=== PATIENT | female | born 1940 | race Caucasian/White ===

== ENCOUNTER 2018-06-23 04:54 | Inpatient (IN) ==
--- NOTE | 2018-06-16 14:15 | XRay Report ---
CLINICAL INFORMATION: pre surgery COMPARISON: 12/06/2017 FINDINGS: Heart size, mediastinum and pulmonary vessels are normal. There is minimal wall thickening central bronchi and slight elevation lung volumes suggesting chronic bronchitis - no change. No infiltrates or new pulmonary abnormalities. No effusions. Moderate degenerative disease throughout the thoracic spine stable IMPRESSION: Possible chronic bronchitis - stable. No acute disease Interpreted and Authenticated by: Benny Lockwood 06/16/18
[2018-06-16 18:35] LABS: Blood Urea Nitrogen 12 mg/dl (8-23)
[2018-06-23] MEDS ORDERED: LEVOFLOXACIN 750 MG/150 ML BAG IV SCH (06:30)
[2018-06-23] MEDS ORDERED: ROCURONIUM 10 MG/ML ML IV ONE (07:30)
[2018-06-23] MEDS ORDERED: DEXAMETHASONE 10 MG/ML VIAL IV ONE (07:30)
[2018-06-23] MEDS ORDERED: NEOSTIGMINE 1 MG/ML VIAL IV ONE (07:30)
[2018-06-23] MEDS ORDERED: ONDANSETRON 4 MG/2 ML VIAL IV ONE (07:30)
[2018-06-23] MEDS ORDERED: fentaNYL 250 MCG/5 ML VIAL IV ONE (07:30)
[2018-06-23] MEDS ORDERED: GLYCOPYRROLATE 0.2 MG/ML VIAL IV ONE (07:30)
[2018-06-23] MEDS ORDERED: LIDOCAINE HCL/PF 100 MG/5 ML SYRINGE IV ONE (07:30)
[2018-06-23] MEDS ORDERED: PROPOFOL 200 MG/20 ML VIAL IV ONE (07:30)
[2018-06-23] MEDS ORDERED: MIDAZOLAM 2 MG/2 ML VIAL IV ONE (07:30)
[2018-06-23] MEDS ORDERED: ePHEDrine 50 MG/ML AMPUL IV ONE (07:30)
[2018-06-23] MEDS ORDERED: PHENYLEPHRINE 10 MG/ML VIAL IV ONE (07:30)
[2018-06-23] MEDS ORDERED: KETAMINE 100 MG/ML ML IV ONE (07:30)
[2018-06-23] MEDS ORDERED: BACITRACIN 50,000 UNIT VIAL IR ONE (08:08)
[2018-06-23] MEDS ORDERED: fentaNYL 100 MCG/2 ML VIAL IV PRN (08:32)
[2018-06-23] MEDS ORDERED: METHOCARBAMOL 1,000 MG/10 ML VIAL IV PRN (08:32)
[2018-06-23] MEDS ORDERED: IPRATROPIUM/ALBUTEROL 3 ML AMPUL.NEB NEB PRN (08:32)
[2018-06-23] MEDS ORDERED: HYDROmorphone 2 MG/ML VIAL IV PRN (08:32)
[2018-06-23] MEDS ORDERED: FLUMAZENIL 0.1 MG/ML ML IV PRN (08:32)
[2018-06-23] MEDS ORDERED: ACETAMINOPHEN 1,000 MG/100 ML BOTTLE IV ONE (08:32)
[2018-06-23] MEDS ORDERED: ONDANSETRON 4 MG/2 ML VIAL IV PRN ×2 (08:32→10:01)
[2018-06-23] MEDS ORDERED: LACTATED RINGERS 250 ML IV PRN (08:32)
[2018-06-23] MEDS ORDERED: NALOXONE HCL 0.4 MG/ML VIAL IV PRN (08:32)
[2018-06-23] MEDS ORDERED: BENZOCAINE/MENTHOL 1 LOZENGE PO PRN (08:32)
[2018-06-23] MEDS ORDERED: LACTATED RINGERS 1,000 ML IV SCH (08:45)
--- NOTE | 2018-06-23 09:48 | Brief Operative Note ---
Date of procedure: 06/23/18 Pre-op diagnosis: incarcerated incisional hernia Post-op diagnosis: other (recurrent incisional hernia) Procedure: repair of recurrent incisional hernia with mesh and explantation of old mesh Grafts/Implants: No (surgimesh) Anesthesia: GETA Findings: onlay mesh graft with herniation at superior and inferior margins of graft Complications: none Surgeon: Bernice Sims Estimated blood loss (cc): 50 Specimens Removed/Pathology: none sent Condition: stable Disposition: PACU
[2018-06-23] MEDS: 0.9 % SODIUM CHLORIDE 1,000 ML IV SCH (12:19)
[2018-06-23] MEDS: METOCLOPRAMIDE 10 MG/2 ML VIAL IV SCH ×2 (12:19→17:27)
[2018-06-23] MEDS: PANTOPRAZOLE 40 MG VIAL IV SCH (17:27)
[2018-06-23] MEDS: 0.9 % SODIUM CHLORIDE 10 ML SYRINGE IV SCH ×2 (17:28→20:00)
[2018-06-23] MEDS: ACETAMINOPHEN 1,000 MG/100 ML BOTTLE IV PRN (19:16)
[2018-06-23] MEDS: HYDROmorphone 2 MG/ML VIAL IV PRN ×2 (19:25→23:33)
[2018-06-23] MEDS: DOCUSATE SODIUM 100 MG CAPSULE PO SCH (21:20)
[2018-06-24] MEDS: METOCLOPRAMIDE 10 MG/2 ML VIAL IV SCH ×4 (00:38→18:53)
[2018-06-24] MEDS: 0.9 % SODIUM CHLORIDE 1,000 ML IV SCH ×3 (02:26→17:16)
[2018-06-24] MEDS: ACETAMINOPHEN 1,000 MG/100 ML BOTTLE IV PRN ×2 (02:26→13:47)
[2018-06-24] MEDS: HYDROmorphone 2 MG/ML VIAL IV PRN ×4 (03:35→13:49)
[2018-06-24 06:01] LABS: Basophils # (Auto) 0.1 K/mcL (0.0-0.3); Basophils % (Auto) 0.5 % (0.0-2.0); Eosinophils # (Auto) 0.1 K/mcL (0.0-0.7); Eosinophils % (Auto) 0.8 % (0.0-7.0); Granulocytes % (Auto) 75.2 % (38.0-78.0); Lymphocytes # (Auto) 1.7 K/mcL (1.5-4.8); Lymphocytes % (Auto) 14.8 % (15.5-49.0); Mean Cell Volume 92.9 fL (80.0-100.0); Mean Corpuscular HGB Conc 33.6 g/dL (31.0-36.0); Mean Corpuscular Hemoglobin 31.2 pg (26.0-34.0); Monocytes % (Auto) 8.7 % (1.0-12.0); Platelet Count 278 K/mcL (140-440); RBC 3.64 M/mcL (4.00-5.20); Red Cell Distribution Width 13.4 % (11.5-14.5)
[2018-06-24] MEDS: 0.9 % SODIUM CHLORIDE 10 ML SYRINGE IV SCH ×3 (06:06→22:47)
[2018-06-24 06:33] LABS: ALT/SGPT 16 U/l (0-40); Albumin 3.9 gm/dL (3.2-5.2); Albumin/Globulin Ratio 1.6 (1.0-2.3); Alkaline Phosphatase 109 U/L (39-117); Bilirubin,Direct < 0.2 mg/dL (0.0-0.3); Blood Urea Nitrogen 12 mg/dl (8-23); Gamma Glutamyl Transpeptidase 21 U/L (5-36); Uric Acid 5.8 mg/dL (2.5-8.0)
[2018-06-24] MEDS: PANTOPRAZOLE 40 MG VIAL IV SCH ×2 (07:23→17:15)
[2018-06-24] MEDS: LEVOFLOXACIN 750 MG/150 ML BAG IV SCH (08:46)
[2018-06-24] MEDS: DOCUSATE SODIUM 100 MG CAPSULE PO SCH ×2 (11:00→21:11)
--- NOTE | 2018-06-24 14:11 | General Surgery Progress Note ---
Subjective Patient reports: feels better, still having pain, no flatus, no bowel movement, afebrile Narrative: Note initiated : 06/24/18 at 2:09 pm Service Date, if different from initiated Date: [] Patient: Pili Varghese 77 y/o F admitted on 06/23/18 for Open Incarcerated Incisional Hernia Repair with . Chief Complaint: [Patient is stable. She has nausea but no vomiting. She has not had any flatus. Her pain is significant but the Dilaudid is toO strong for her.] Objective Temp Pulse Resp BP Pulse Ox 98.0 F 96 H 16 131/74 90 06/24/18 11:48 06/24/18 11:48 06/24/18 08:00 06/24/18 11:48 06/24/18 08:00 - Additional Data Intake & Output - Last 24 hours: Intake & Output 06/22/18 06/23/18 06/24/18 06/25/18 05:59 05:59 05:59 05:59 Intake Total 3100 / 3100 150 / 150 Output Total 1107 / 1107 Balance 1992 150 / 150 Weight 172 lb 8 oz 175 lb 175 lb - General physical appearance well developed, well nourished, no distress - Eyes PERRL, normal ocular movement - ENT normal pinna, normal nares, normal mucosa, no hearing loss, no congestion - Neck no masses, no bruits, trachea midline, no lymphadenopathy, no venous distension - Respiratory normal expansion, normal respiratory effort, clear to auscultation - Cardiovascular Cardiovascular exam: Present: normal rate and rhythm, RRR, +S1, +S2. Absent: JVD, tachycardia - Abdomen tender (moderate incisional tenderness; active bowel sounds; incision looks good ; TRISHA drainage is bloody), bowel sounds (present), surgical scars (none), masses (none) - Rectum normal sphincter tone, no hemorrhoids, no tenderness, no masses, no bleeding - Integumentary no rash, no growths, no abnormal pigmentation - Neurologic normal coordination, normal sensation - Musculoskeletal normal gait, normal posture - Psychiatric oriented to time, oriented to person, oriented to place, speech is normal, memory intact - Labs 06/24/18 05:00 06/24/18 05:00 Diabetes panel 06/24/18 Range/Units 05:00 Sodium 134 (133-145) mmol/L Potassium 4.4 (3.3-5.1) mmol/L Chloride 99 (96-108) mmol/L Carbon Dioxide 23 (22-30) mmol/L BUN 12 (8-23) mg/dl Creatinine 0.7 (0.6-1.1) mg/dl Glucose 105 (70-105) mg/dL Calcium 9.5 (8.6-10.4) mg/dl AST 23 (0-37) U/l ALT 16 (0-40) U/l Alkaline Phosphatase 109 (39-117) U/L Total Protein 6.3 (5.9-8.4) gm/dL Albumin 3.9 (3.2-5.2) gm/dL Triglycerides 118 (<150) mg/dl Calcium panel 06/24/18 Range/Units 05:00 Calcium 9.5 (8.6-10.4) mg/dl Phosphorus 4.0 (2.7-4.5) mg/dL Albumin 3.9 (3.2-5.2) gm/dL Pituitary panel 06/24/18 Range/Units 05:00 Sodium 134 (133-145) mmol/L Potassium 4.4 (3.3-5.1) mmol/L Chloride 99 (96-108) mmol/L Carbon Dioxide 23 (22-30) mmol/L BUN 12 (8-23) mg/dl Creatinine 0.7 (0.6-1.1) mg/dl Glucose 105 (70-105) mg/dL Calcium 9.5 (8.6-10.4) mg/dl Adrenal panel 06/24/18 Range/Units 05:00 Sodium 134 (133-145) mmol/L Potassium 4.4 (3.3-5.1) mmol/L Chloride 99 (96-108) mmol/L Carbon Dioxide 23 (22-30) mmol/L BUN 12 (8-23) mg/dl Creatinine 0.7 (0.6-1.1) mg/dl Glucose 105 (70-105) mg/dL Calcium 9.5 (8.6-10.4) mg/dl Total Bilirubin 0.7 (0.0-1.0) mg/dL AST 23 (0-37) U/l ALT 16 (0-40) U/l Alkaline Phosphatase 109 (39-117) U/L Total Protein 6.3 (5.9-8.4) gm/dL Albumin 3.9 (3.2-5.2) gm/dL Assessment and Plan (1) Incarcerated incisional hernia Status: Chronic Assessment and plan: Switch to Dilaudid to Demerol Current Visit: No (2) Gastroesophageal reflux Status: Chronic Current Visit: No (3) 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
[2018-06-24] MEDS ORDERED: MEPERIDINE 25 MG/ML SYRINGE IV PRN (14:14)
[2018-06-24] MEDS ORDERED: fentaNYL 100 MCG/2 ML VIAL IV PRN (17:59)
[2018-06-24] MEDS ORDERED: fentaNYL 100 MCG/2 ML VIAL IV ONE ×2 (18:51→20:51)
[2018-06-24] MEDS: oxyCODONE/APAP 5/325MG TABLET PO PRN (21:10)
[2018-06-24] MEDS: fentaNYL 100 MCG/2 ML VIAL IV PRN (23:06)
[2018-06-25] MEDS: METOCLOPRAMIDE 10 MG/2 ML VIAL IV SCH ×5 (00:25→23:37)
[2018-06-25] MEDS: oxyCODONE/APAP 5/325MG TABLET PO PRN ×3 (00:50→09:39)
[2018-06-25] MEDS: fentaNYL 100 MCG/2 ML VIAL IV PRN (01:54)
[2018-06-25 05:27] LABS: Basophils # (Auto) 0 K/mcL (0.0-0.3); Basophils % (Auto) 0.5 % (0.0-2.0); Eosinophils # (Auto) 0.4 K/mcL (0.0-0.7); Eosinophils % (Auto) 4.3 % (0.0-7.0); Granulocytes % (Auto) 73.1 % (38.0-78.0); Lymphocytes # (Auto) 1.4 K/mcL (1.5-4.8); Lymphocytes % (Auto) 14.9 % (15.5-49.0); Mean Cell Volume 92.9 fL (80.0-100.0); Mean Corpuscular HGB Conc 33.5 g/dL (31.0-36.0); Mean Corpuscular Hemoglobin 31.1 pg (26.0-34.0); Monocytes # (Auto) 0.7 K/mcL (0.1-0.9); Monocytes % (Auto) 7.2 % (1.0-12.0); Platelet Count 233 K/mcL (140-440); RBC 3.66 M/mcL (4.00-5.20); Red Cell Distribution Width 13.3 % (11.5-14.5)
[2018-06-25 06:01] LABS: ALT/SGPT 15 U/l (0-40); Albumin 3.5 gm/dL (3.2-5.2); Albumin/Globulin Ratio 1.4 (1.0-2.3); Alkaline Phosphatase 108 U/L (39-117); Bilirubin,Direct < 0.2 mg/dL (0.0-0.3); Blood Urea Nitrogen 8 mg/dl (8-23); Gamma Glutamyl Transpeptidase 23 U/L (5-36); Uric Acid 5.4 mg/dL (2.5-8.0)
[2018-06-25] MEDS: 0.9 % SODIUM CHLORIDE 1,000 ML IV SCH ×2 (06:01→16:04)
[2018-06-25] MEDS: 0.9 % SODIUM CHLORIDE 10 ML SYRINGE IV SCH ×3 (06:01→20:25)
[2018-06-25] MEDS: PANTOPRAZOLE 40 MG VIAL IV SCH ×2 (09:25→18:57)
[2018-06-25] MEDS: LEVOFLOXACIN 750 MG/150 ML BAG IV SCH (09:29)
[2018-06-25] MEDS: DOCUSATE SODIUM 100 MG CAPSULE PO SCH ×2 (09:31→20:24)
[2018-06-25] MEDS ORDERED: POTASSIUM PHOSPHATE 40 MEQ in DEXTROSE 5% IN WATER 500 ML IV ONE (13:58)
--- NOTE | 2018-06-25 14:02 | General Surgery Progress Note ---
Subjective Patient reports: feels better, pain is less, flatus, no bowel movement, afebrile Narrative: Note initiated : 06/25/18 at 1:59 pm Service Date, if different from initiated Date: [] Patient: Pili Varghese 77 y/o F admitted on 06/23/18 for Open Incarcerated Incisional Hernia Repair with . Chief Complaint: [patient is doing well. She has some nausea earlier today but complains of thirst and hunger. Her pain is better controlled. Her serum phosphorus 3 is 2.6.. White blood count 9.7; hemoglobin 11.4] Objective Temp Pulse Resp BP Pulse Ox 98.1 F 93 H 18 126/74 97 06/25/18 11:50 06/25/18 11:50 06/25/18 11:50 06/25/18 11:50 06/25/18 11:50 - Additional Data Intake & Output - Last 24 hours: Intake & Output 06/23/18 06/24/18 06/25/18 06/26/18 05:59 05:59 05:59 05:59 Intake Total 3100 / 3100 1630 / 1630 1001 / 1001 Output Total 1107 / 1107 1756 / 1756 475 / 475 Balance 1992 / 1992 -126 / -126 526 / 526 Weight 172 lb 8 oz 175 lb 176 lb - General physical appearance well developed, well nourished, no distress, moderate pain - Eyes PERRL, normal ocular movement - ENT normal pinna, normal nares, normal mucosa, no hearing loss, no congestion - Neck no masses, no bruits, trachea midline, no lymphadenopathy, no venous distension - Respiratory normal expansion, normal respiratory effort, clear to auscultation - Cardiovascular Cardiovascular exam: Present: normal rate and rhythm, RRR, +S1, +S2. Absent: JVD, tachycardia - Abdomen tender (moderate incisional tenderness; good active bowel sounds; incision looks good), bowel sounds (present), surgical scars (none), masses (none) - Integumentary no growths, no abnormal pigmentation, other ( inflammation in the intertriginous area) - Neurologic normal coordination, normal sensation - Musculoskeletal normal gait, normal posture - Psychiatric oriented to time, oriented to person, oriented to place, speech is normal, memory intact - Labs 06/25/18 04:41 06/25/18 04:41 Diabetes panel 06/25/18 Range/Units 04:41 Sodium 140 (133-145) mmol/L Potassium 4.0 (3.3-5.1) mmol/L Chloride 104 (96-108) mmol/L Carbon Dioxide 24 (22-30) mmol/L BUN 8 (8-23) mg/dl Creatinine 0.6 (0.6-1.1) mg/dl Glucose 97 (70-105) mg/dL Calcium 9.1 (8.6-10.4) mg/dl AST 26 (0-37) U/l ALT 15 (0-40) U/l Alkaline Phosphatase 108 (39-117) U/L Total Protein 6.0 (5.9-8.4) gm/dL Albumin 3.5 (3.2-5.2) gm/dL Triglycerides 124 (<150) mg/dl Calcium panel 06/25/18 Range/Units 04:41 Calcium 9.1 (8.6-10.4) mg/dl Phosphorus 2.6 L (2.7-4.5) mg/dL Albumin 3.5 (3.2-5.2) gm/dL Pituitary panel 06/25/18 Range/Units 04:41 Sodium 140 (133-145) mmol/L Potassium 4.0 (3.3-5.1) mmol/L Chloride 104 (96-108) mmol/L Carbon Dioxide 24 (22-30) mmol/L BUN 8 (8-23) mg/dl Creatinine 0.6 (0.6-1.1) mg/dl Glucose 97 (70-105) mg/dL Calcium 9.1 (8.6-10.4) mg/dl Adrenal panel 06/25/18 Range/Units 04:41 Sodium 140 (133-145) mmol/L Potassium 4.0 (3.3-5.1) mmol/L Chloride 104 (96-108) mmol/L Carbon Dioxide 24 (22-30) mmol/L BUN 8 (8-23) mg/dl Creatinine 0.6 (0.6-1.1) mg/dl Glucose 97 (70-105) mg/dL Calcium 9.1 (8.6-10.4) mg/dl Total Bilirubin 0.7 (0.0-1.0) mg/dL AST 26 (0-37) U/l ALT 15 (0-40) U/l Alkaline Phosphatase 108 (39-117) U/L Total Protein 6.0 (5.9-8.4) gm/dL Albumin 3.5 (3.2-5.2) gm/dL Assessment and Plan (1) Incarcerated incisional hernia Status: Chronic Assessment and plan: Clear liquid diet Current Visit: No (2) Gastroesophageal reflux Status: Chronic Current Visit: No (3) 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
[2018-06-25] MEDS: oxyCODONE/APAP 10/325MG TABLET PO PRN ×2 (16:01→20:24)
[2018-06-26] MEDS: oxyCODONE/APAP 10/325MG TABLET PO PRN ×4 (02:17→21:28)
[2018-06-26] MEDS: 0.9 % SODIUM CHLORIDE 1,000 ML IV SCH ×2 (04:09→20:04)
[2018-06-26] MEDS: METOCLOPRAMIDE 10 MG/2 ML VIAL IV SCH ×2 (05:51→15:15)
[2018-06-26] MEDS: 0.9 % SODIUM CHLORIDE 10 ML SYRINGE IV SCH ×3 (05:52→21:28)
[2018-06-26] MEDS: PANTOPRAZOLE 40 MG VIAL IV SCH ×2 (07:48→18:01)
[2018-06-26] MEDS: DOCUSATE SODIUM 100 MG CAPSULE PO SCH ×2 (09:06→21:28)
[2018-06-26] MEDS: LEVOFLOXACIN 750 MG/150 ML BAG IV SCH (09:07)
[2018-06-26 10:16] LABS: Basophils # (Auto) 0 K/mcL (0.0-0.3); Basophils % (Auto) 0.4 % (0.0-2.0); Eosinophils # (Auto) 0.4 K/mcL (0.0-0.7); Eosinophils % (Auto) 4.9 % (0.0-7.0); Granulocytes % (Auto) 73.3 % (38.0-78.0); Lymphocytes # (Auto) 1.1 K/mcL (1.5-4.8); Lymphocytes % (Auto) 13.5 % (15.5-49.0); Mean Cell Volume 92.8 fL (80.0-100.0); Mean Corpuscular HGB Conc 33.6 g/dL (31.0-36.0); Mean Corpuscular Hemoglobin 31.1 pg (26.0-34.0); Monocytes # (Auto) 0.7 K/mcL (0.1-0.9); Monocytes % (Auto) 7.9 % (1.0-12.0); Platelet Count 253 K/mcL (140-440); RBC 3.61 M/mcL (4.00-5.20)
[2018-06-26 10:33] LABS: ALT/SGPT 17 U/l (0-40); Albumin 3.5 gm/dL (3.2-5.2); Albumin/Globulin Ratio 1.4 (1.0-2.3); Alkaline Phosphatase 109 U/L (39-117); Bilirubin,Direct 0.2 mg/dL (0.0-0.3); Blood Urea Nitrogen 5 mg/dl (8-23); Gamma Glutamyl Transpeptidase 27 U/L (5-36); Uric Acid 4.7 mg/dL (2.5-8.0)
--- NOTE | 2018-06-26 15:51 | General Surgery Progress Note ---
Subjective Patient reports: feels better, pain is less, tolerating liquids well, flatus, bowel movement, afebrile Narrative: Note initiated : 06/26/18 at 3:49 pm Service Date, if different from initiated Date: [] Patient: Pili Varghese 77 y/o F admitted on 06/23/18 for Open Incarcerated Incisional Hernia Repair with . Chief Complaint: [patient continues to improve. She denies nausea. She is passing gas but has not had a bowel movement.. White blood count 8.4 and hemoglobin 11.2.. Inpatient panel is normal] Objective Temp Pulse Resp BP Pulse Ox 97.6 F 86 18 152/97 97 06/26/18 12:00 06/26/18 12:00 06/26/18 12:00 06/26/18 12:00 06/26/18 12:00 - Additional Data Intake & Output - Last 24 hours: Intake & Output 06/24/18 06/25/18 06/26/18 06/27/18 05:59 05:59 05:59 05:59 Intake Total 3100 / 3100 1630 / 1630 3005 / 3005 1710 / 1710 Output Total 1107 / 1107 1756 / 1756 2700 / 2700 1813 / 1813 Balance 1992 / 1992 -126 / -126 305 / 305 -103 / -103 Weight 175 lb 176 lb 174 lb 8 oz - General physical appearance well developed, well nourished, no distress - Eyes PERRL, normal ocular movement - ENT normal pinna, normal nares, normal mucosa, no hearing loss, no congestion - Neck no masses, no bruits, trachea midline, no lymphadenopathy, no venous distension - Respiratory normal expansion, normal respiratory effort, clear to auscultation - Cardiovascular Cardiovascular exam: Present: normal rate and rhythm, RRR, +S1, +S2. Absent: JVD, tachycardia - Abdomen tender (still with tenderness in upper midabdomen; good active bowel sounds), bowel sounds (present), surgical scars (surgical incision is unremarkable), masses (none) - Neurologic normal coordination, normal sensation - Musculoskeletal normal gait, normal posture - Psychiatric oriented to time, oriented to person, oriented to place, speech is normal, memory intact - Labs 06/26/18 09:10 06/26/18 09:10 Diabetes panel 06/26/18 Range/Units 09:10 Sodium 138 (133-145) mmol/L Potassium 3.8 (3.3-5.1) mmol/L Chloride 101 (96-108) mmol/L Carbon Dioxide 26 (22-30) mmol/L BUN 5 L (8-23) mg/dl Creatinine 0.6 (0.6-1.1) mg/dl Glucose 135 H (70-105) mg/dL Calcium 9.6 (8.6-10.4) mg/dl AST 27 (0-37) U/l ALT 17 (0-40) U/l Alkaline Phosphatase 109 (39-117) U/L Total Protein 6.0 (5.9-8.4) gm/dL Albumin 3.5 (3.2-5.2) gm/dL Triglycerides 136 (<150) mg/dl Calcium panel 06/26/18 Range/Units 09:10 Calcium 9.6 (8.6-10.4) mg/dl Phosphorus 3.2 (2.7-4.5) mg/dL Albumin 3.5 (3.2-5.2) gm/dL Pituitary panel 06/26/18 Range/Units 09:10 Sodium 138 (133-145) mmol/L Potassium 3.8 (3.3-5.1) mmol/L Chloride 101 (96-108) mmol/L Carbon Dioxide 26 (22-30) mmol/L BUN 5 L (8-23) mg/dl Creatinine 0.6 (0.6-1.1) mg/dl Glucose 135 H (70-105) mg/dL Calcium 9.6 (8.6-10.4) mg/dl Adrenal panel 06/26/18 Range/Units 09:10 Sodium 138 (133-145) mmol/L Potassium 3.8 (3.3-5.1) mmol/L Chloride 101 (96-108) mmol/L Carbon Dioxide 26 (22-30) mmol/L BUN 5 L (8-23) mg/dl Creatinine 0.6 (0.6-1.1) mg/dl Glucose 135 H (70-105) mg/dL Calcium 9.6 (8.6-10.4) mg/dl Total Bilirubin 0.8 (0.0-1.0) mg/dL AST 27 (0-37) U/l ALT 17 (0-40) U/l Alkaline Phosphatase 109 (39-117) U/L Total Protein 6.0 (5.9-8.4) gm/dL Albumin 3.5 (3.2-5.2) gm/dL Assessment and Plan (1) Incarcerated incisional hernia Status: Chronic Assessment and plan: Advanced GI soft Discontinue Crawley catheter Possible discharge in AM Current Visit: No (2) Gastroesophageal reflux Status: Chronic Current Visit: No (3) 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
[2018-06-27] MEDS: 0.9 % SODIUM CHLORIDE 10 ML SYRINGE IV SCH ×2 (04:47→17:11)
[2018-06-27 06:01] LABS: Basophils # (Auto) 0 K/mcL (0.0-0.3); Basophils % (Auto) 0.4 % (0.0-2.0); Eosinophils # (Auto) 0.4 K/mcL (0.0-0.7); Eosinophils % (Auto) 6.1 % (0.0-7.0); Granulocytes % (Auto) 65.8 % (38.0-78.0); Lymphocytes # (Auto) 1.4 K/mcL (1.5-4.8); Lymphocytes % (Auto) 19.2 % (15.5-49.0); Mean Cell Volume 92.7 fL (80.0-100.0); Mean Corpuscular HGB Conc 33.6 g/dL (31.0-36.0); Mean Corpuscular Hemoglobin 31.1 pg (26.0-34.0); Monocytes # (Auto) 0.6 K/mcL (0.1-0.9); Monocytes % (Auto) 8.5 % (1.0-12.0); Platelet Count 256 K/mcL (140-440); RBC 3.36 M/mcL (4.00-5.20); Red Cell Distribution Width 12.9 % (11.5-14.5)
[2018-06-27 06:53] LABS: ALT/SGPT 17 U/l (0-40); Albumin 3.1 gm/dL (3.2-5.2); Albumin/Globulin Ratio 1.4 (1.0-2.3); Alkaline Phosphatase 104 U/L (39-117); Bilirubin,Direct < 0.2 mg/dL (0.0-0.3); Blood Urea Nitrogen 5 mg/dl (8-23); Gamma Glutamyl Transpeptidase 30 U/L (5-36); Uric Acid 4.1 mg/dL (2.5-8.0)
[2018-06-27] MEDS: PANTOPRAZOLE 40 MG VIAL IV SCH (07:34)
[2018-06-27] MEDS: LEVOFLOXACIN 750 MG/150 ML BAG IV SCH (08:40)
[2018-06-27] MEDS: DOCUSATE SODIUM 100 MG CAPSULE PO SCH (08:40)
--- NOTE | 2018-06-27 15:50 | Discharge Summary ---
Providers - Providers Patient information: Note initiated : 06/27/18 at 3:48 pm Service Date, if different from initiated Date: [] Patient: Pili Varghese 77 y/o F admitted on 06/23/18 for Open Incarcerated Incisional Hernia Repair with . Chief Complaint: [] Date of admission: 06/23/18 Discharge date: 06/27/18 Attending physician: Bernice Sims Hospitalization Hospital course: 77-year-old female admitted after undergoing repair of a recurrent incisional hernia with mesh and explantation of old. The patient had mild ileus.. But is now tolerating a soft diet. She is having regular bowel movements. Her drains have modest amount of serous drainage. She is afebrile and has normal white blood count. She is stable for discharge with plans for follow-up on 10 July. Discharge diagnosis: recurrent incisional hernia Reason for admission: recurrent incisional hernia Procedures: Repair of recurrent incisional hernia with mesh graft #2 explantation of old mesh Pertinent studies/significant findings: None Complications: none Exam Temp Pulse Resp BP Pulse Ox 97.6 F 86 18 131/86 99 06/27/18 12:00 06/27/18 12:00 06/27/18 12:00 06/27/18 12:00 06/27/18 12:00 - General physical appearance well developed, well nourished, no distress, moderate pain - Eyes PERRL, normal ocular movement - ENT normal pinna, normal nares, normal mucosa, no hearing loss, no congestion - Head Head exam IM: Present: atraumatic, normocephalic - Neck no masses, no bruits, trachea midline, no lymphadenopathy, no venous distension - Cardiovascular Cardiovascular exam IM: Present: normal rate and rhythm - Respiratory normal expansion, normal respiratory effort, clear to auscultation - Abdomen Abdomen: Present: soft, tender (mild incisional tenderness;;;;;;; incision looks good; TRISHA drains with serous drainage), bowel sounds Hernia: Present: none - Genitourinary Present: normal external genitalia - Integumentary Present: no rash, no growths, no abnormal pigmentation - Neurologic Present: normal coordination, normal sensation - Musculoskeletal Present: normal gait, normal posture - Psychiatric Present: oriented to time, oriented to person, oriented to place, speech is normal, memory intact Discharge Plan - Patient/Caregiver Discharge Instructions Activity: increase activity as tolerated Diet: Regular Diet Additional Instructions: May shower with Tegaderm dressing in place Empty TRISHA drains once or twice daily as needed Follow-up in office on July 02 Prescriptions: Ciprofloxacin [Cipro] 500 mg PO BID #20 tab oxyCODONE/APAP [Percocet 10-325Mg] 1 tab PO Q4HP PRN #30 tab PRN Reason: Pain Level 3-6 - Follow up Plan Follow up with: Bernice Sims MD [Physician] - 07/10/18 9:30 am Disposition: Home, Self-Care Prognosis: Good Rehab Potential: Good I certify that the patient requires SNF services.: No Overall status at discharge: patient is not back to baseline Pending Studies Resuscitation Status Full Code Diet GI Soft/Transitional Start TueJun 26 1547 Docusate Sodium (Colace) 100 mg PO BID [facility] Last Admin: 06/27/18 08:40 Dose: 100 mg Admin: 06/26/18 21:28 Dose: 100 mg Admin: 06/26/18 09:06 Dose: 100 mg Admin: 06/25/18 20:24 Dose: 100 mg Admin: 06/25/18 09:31 Dose: Not Given Admin: 06/24/18 21:11 Dose: 100 mg Admin: 06/24/18 11:00 Dose: Not Given Admin: 06/23/18 21:20 Dose: Not Given Fentanyl (Sublimaze) 50 mcg IV Q2HP PRN PRN Reason: PAIN LEVEL > 6 Last Admin: 06/25/18 01:54 Dose: 50 mcg Admin: 06/24/18 23:06 Dose: 50 mcg Levofloxacin (Levaquin) 750 mg in 150 mls @ 100 mls/hr IV DAILY [facility] Last Admin: 06/27/18 08:40 Dose: 100 mls/hr Infusion: 06/26/18 10:37 Dose: 100 mls/hr Admin: 06/26/18 09:07 Dose: 100 mls/hr Infusion: 06/25/18 10:59 Dose: 100 mls/hr Admin: 06/25/18 09:29 Dose: 100 mls/hr Infusion: 06/24/18 11:56 Dose: 0 mls/hr Admin: 06/24/18 08:46 Dose: 100 mls/hr Sodium Chloride (Sodium Chloride 0.9%) 1,000 mls @ 75 mls/hr IV .[id number] JOSÉ MIGUEL Last Admin: 06/26/18 20:04 Dose: 75 mls/hr Infusion: 06/26/18 05:24 Dose: 75 mls/hr Admin: 06/26/18 04:09 Dose: Not Given Admin: 06/25/18 16:04 Dose: 75 mls/hr Infusion: 06/25/18 16:04 Dose: 75 mls/hr Admin: 06/25/18 06:01 Dose: 75 mls/hr Infusion: 06/25/18 06:01 Dose: 0 mls/hr Admin: 06/24/18 17:16 Dose: 75 mls/hr Infusion: 06/24/18 15:46 Dose: 75 mls/hr Admin: 06/24/18 02:26 Dose: 75 mls/hr Infusion: 06/24/18 01:39 Dose: 0 mls/hr Admin: 06/23/18 12:19 Dose: 75 mls/hr Acetaminophen (Ofirmev) 1,000 mg in 100 mls @ 200 mls/hr IV Q6HP PRN PRN Reason: Pain Last Infusion: 06/24/18 16:04 Dose: 0 mls/hr Admin: 06/24/18 13:47 Dose: 200 mls/hr Infusion: 06/24/18 02:56 Dose: 200 mls/hr Admin: 06/24/18 02:26 Dose: 200 mls/hr Infusion: 06/23/18 19:46 Dose: 200 mls/hr Admin: 06/23/18 19:16 Dose: 200 mls/hr Oxycodone/Acetaminophen (Percocet 10-325mg) 1 tab PO Q4HP PRN PRN Reason: PAIN LEVEL 3-6 Last Admin: 06/26/18 21:28 Dose: 1 tab Admin: 06/26/18 12:47 Dose: 1 tab Admin: 06/26/18 06:35 Dose: 1 tab Admin: 06/26/18 02:17 Dose: 1 tab Admin: 06/25/18 20:24 Dose: 1 tab Admin: 06/25/18 16:01 Dose: 1 tab Pantoprazole Sodium (Protonix) 40 mg IV BIDAC [facility] Last Admin: 11/13/18 07:34 Dose: 40 mg Admin: 06/26/18 18:01 Dose: 40 mg Admin: 06/26/18 07:48 Dose: 40 mg Admin: 06/25/18 18:57 Dose: 40 mg Admin: 06/25/18 09:25 Dose: 40 mg Admin: 06/24/18 17:15 Dose: 40 mg Admin: 06/24/18 07:23 Dose: 40 mg Admin: 06/23/18 17:27 Dose: 40 mg Sodium Chloride (Saline Flush) 10 ml IV Q8 JOSÉ MIGUEL Last Admin: 06/27/18 04:47 Dose: Not Given Admin: 06/26/18 21:28 Dose: Not Given Admin: 06/26/18 15:39 Dose: Not Given Admin: 06/26/18 05:52 Dose: 10 ml Admin: 06/25/18 20:25 Dose: 10 ml Admin: 06/25/18 18:43 Dose: Admin: 06/25/18 06:01 Dose: 10 ml Admin: 06/24/18 22:47 Dose: 10 ml Admin: 06/24/18 16:03 Dose: Not Given Admin: 06/24/18 06:06 Dose: 10 ml Admin: 06/23/18 20:00 Dose: 10 ml Admin: 06/23/18 17:28 Dose: Not Given Shift Summary 06/27/18 05:12 Shift Summary by Lidya Terrell&Ox4. VSS on 2L via NC. Up with FWW and SBA. Surgical incision to midline abdomen has valerie and Tegaderm in place; no new drainage. [address] with serosanguineous output. Abdominal binder in place. Medicated for abdominal pain x1 with 1 tablet Percocet 10/325mg at HS. Tolerating GI soft diet well; denies nausea. Will update at bedside. Initialized on 06/27/18 05:12 - END OF NOTE
--- NOTE | 2018-07-05 14:04 | Operative Note ---
DATE OF OPERATION: 06/23/2018 PREOPERATIVE DIAGNOSIS: Incarcerated incisional hernia. POSTOPERATIVE DIAGNOSIS: Recurrent incisional hernia. PROCEDURE: Repair of recurrent incisional hernia with mesh graft and explantation of old mesh. SURGEON: Bernice Sims MD FINDIGNS: Old onlay mesh graft with herniation at the superior and inferior margins of the graft. DESCRIPTION OF PROCEDURE: Under general anesthesia, the patient's abdomen was prepped and draped in the sterile field. A midline incision was made over the upper midline. In the subcutaneous tissue above the fascia old mesh graft was encountered. This was exposed and this appeared to be an onlay graft with herniation at the superior and inferior margins of the graft. Using electrocautery, the graft was removed from the underlying fascia and discarded. The fascia remnant that was adhered in the midline was then and the peritoneal cavity was entered. There was no subfascial graft or mesh noted. Margins of the fascia and muscle were identified. Subcutaneous separation of the fat and fascia were then cleared so as to get good fascial closure. A 10 x 15 Surgimesh skirted oval graft was placed subfascially. It was sutured circumferentially using interrupted 0 Prolene. The muscle and fascia were then closed over the graft in the midline using a running #1 Prolene. Irrigation was carried out. Subcutaneous tissue was closed with 2-0 Monocryl. Skin was closed with valerie. A Tegaderm dressing was placed. The patient tolerated the procedure well. She was awakened, transferred to a bed and taken to the postanesthetic care unit in stable, satisfactory condition. LCS:rachid Job ID: [id number] Doc ID: [id number] Bernice Sims M.D.
== END 2018-06-27 16:30 | disposition home or self-care (01) | DRG 355 ==
LOC: MEDSUR 04:54 → EDSTATUS 07:30
PROVIDERS: ADMIT Family Medicine Adult Medicine; ATTEND Family Medicine Adult Medicine
CPT/HCPCS: 49566; 49568; 80047; 85014; A6213; C1781; C2631; J0131; J1100; J1170; J1956; J2001; J2250; J2370; J2405; J2710; J2765; J3010; J7030; J7060; J7120; J7620; J7620-GY; L1270

== ENCOUNTER 2024-01-23 07:54 | Inpatient (IN) ==
[2024-01-18 16:29] LABS: Basophils # (Auto) 0.06 K/mcL (0.00-0.30); Basophils % (Auto) 0.7 % (0.0-2.0); Eosinophils # (Auto) 0.23 K/mcL (0.00-0.70); Eosinophils % (Auto) 2.8 % (0.0-7.0); Hematocrit 36.3 % (34.1-44.9); Hemoglobin 12.6 g/dL (11.2-15.7); Lymphocytes # (Auto) 1.78 K/mcL (1.50-4.80); Lymphocytes % (Auto) 21.6 % (15.5-49.0); Mean Corpuscular HGB Conc 34.7 g/dL (31.0-36.0); Mean Platelet Volume 10.1 fL (8.8-12.5); Monocytes # (Auto) 0.68 K/mcL (0.10-0.90); Monocytes % (Auto) 8.3 % (1.0-12.0); Neutrophils % (Auto) 66.5 % (38.0-78.0); Platelet Count 286 K/mcL (140-440); RBC 3.99 M/mcL (3.59-5.38); WBC 8.2 K/mcL (4.5-11.0)
[2024-01-18 17:08] LABS: ALT/SGPT 15 U/L (<40); AST/SGOT 27 U/L (<32); Albumin 4.6 gm/dL (3.2-5.2); Albumin/Globulin Ratio 1.8 (1.0-2.3); Alkaline Phosphatase 115 U/L (39-117); Bilirubin,Total 0.7 mg/dL (0.1-1.0); Blood Urea Nitrogen 14 mg/dL (8-23); Calcium 10.3 mg/dL (8.6-10.4); Carbon Dioxide 26 mmol/L (22-30); Chloride 90 mmol/L (96-108); Globulin 2.6 gm/dL (2.2-3.7); Glomerular Filtration Rate 79; Glucose 104 mg/dL (70-105)
[2024-01-18 17:32] LABS: Appearance,Urine Clear (Clear); Bacteria,Urine 0 /hpf (0); Bilirubin,Urine Negative (Negative); Color,Urine Yellow; Culture Indicated,Urine No; Glucose,Urine (UA) Negative (Negative); Ketones,Urine Negative (Negative); Leukocyte Esterase,Urine Small /uL (Negative); Nitrate,Urine Negative (Negative); PH,Urine 6.5 (5.0-9.0); Protein,Urine Negative (Negative); Urine Blood Negative ery/mcL (Negative); Urine RBC 0 /hpf (0-3); Urine Squamous Epithelial Cell 2 /hpf (0-4); Urine WBC 5 /hpf (0-4); Urobilinogen,Urine Normal
[2024-01-18 19:20] LABS: Estimated Average Glucose(eAG) 123 mg/dL; Hemoglobin A1C 5.9 % Hgb (4.0-6.0)
[2024-01-18 19:45] LABS: INR 0.9 (0.9-1.1); Prothrombin Time 12.6 sec (11.9-14.5)
[2024-01-23] MEDS ORDERED: IPRATROPIUM/ALBUTEROL 3 ML AMPUL.NEB NEB PRN ×2 (08:00→14:03)
[2024-01-23] MEDS ORDERED: SCOPOLAMINE 1 PATCH PATCH TOPICAL PRN (08:00)
[2024-01-23] MEDS: ACETAMINOPHEN 500 MG TABLET PO SCH (08:53)
[2024-01-23] MEDS: PREGABALIN 75 MG CAPSULE PO SCH (08:53)
[2024-01-23] MEDS: oxyCODONE 10 MG TAB.ER.12H PO SCH (08:54)
[2024-01-23] MEDS ORDERED: KETAMINE 50 MG/ML Syringe IV ONE (09:40)
[2024-01-23] MEDS ORDERED: ONDANSETRON 4 MG/2 ML VIAL ONE (09:41)
[2024-01-23] MEDS ORDERED: DEXAMETHASONE 10 MG/ML VIAL ONE (09:41)
[2024-01-23] MEDS ORDERED: LIDOCAINE 2% PF 5 ML VIAL ONE (09:41)
[2024-01-23] MEDS ORDERED: PROPOFOL 200 MG/20 ML VIAL IV ONE (09:41)
[2024-01-23] MEDS ORDERED: TRANEXAMIC ACID 1,000 MG/10 ML VIAL ONE (09:41)
[2024-01-23] MEDS ORDERED: MAGNESIUM SULFATE 2 GM/50 ML BAG IV ONE (09:41)
[2024-01-23] MEDS: ceFAZolin 2 GM in DEXTROSE 5% IN WATER 50 ML IV SCH (11:17)
[2024-01-23] MEDS ORDERED: ePHEDrine 50 MG/5 ML SYRINGE (ANEST) IV ONE (11:44)
[2024-01-23] MEDS ORDERED: PHENYLephrine 1 MG/10 ML SYRINGE (ANEST) ONE (12:59)
[2024-01-23] MEDS: 0.9 % SODIUM CHLORIDE 9 ML, KETOROLAC 30 MG, ROPIVACAINE HCL/PF 49.5 ML, EPINEPHrine 0.... IJ SCH (13:45)
[2024-01-23] MEDS ORDERED: MAGNESIUM HYDROXIDE 30 ML ORAL.SUSP PO PRN (14:03)
[2024-01-23] MEDS ORDERED: METHOCARBAMOL 1,000 MG/10 ML VIAL IV PRN (14:03)
[2024-01-23] MEDS ORDERED: diphenhydrAMINE 50 MG/ML VIAL IV PRN (14:03)
[2024-01-23] MEDS ORDERED: NALOXONE HCL 0.4 MG/ML VIAL IV PRN (14:03)
[2024-01-23] MEDS ORDERED: POLYETHYLENE GLYCOL 3350 17 GM PACKET PO PRN (14:03)
[2024-01-23] MEDS ORDERED: MEPERIDINE 25 MG/ML VIAL IV PRN (14:03)
[2024-01-23] MEDS ORDERED: LACTATED RINGERS 250 ML IV PRN (14:03)
[2024-01-23] MEDS ORDERED: PROMETHAZINE 25 MG/ML VIAL IV PRN (14:03)
[2024-01-23] MEDS ORDERED: ONDANSETRON 4 MG/2 ML VIAL IV PRN ×2 (14:03)
[2024-01-23] MEDS ORDERED: fentaNYL 100 MCG/2 ML VIAL IV PRN (14:03)
[2024-01-23] MEDS ORDERED: FLEETS ADULT 1 DOSE ENEMA PR PRN (14:03)
[2024-01-23] MEDS ORDERED: TEMAZEPAM 15 MG CAPSULE PO PRN ×2 (14:03)
[2024-01-23] MEDS ORDERED: BENZOCAINE/MENTHOL 1 LOZENGE PO PRN (14:03)
[2024-01-23] MEDS ORDERED: BISACODYL 10 MG SUPP.RECT PR PRN (14:03)
[2024-01-23] MEDS ORDERED: NON FORMULARY MEDICATION 1 DOSE MISCELL (Acetaminophen [Tylenol 8 Hour] 650 mg tablet exte PO PRN (14:07)
[2024-01-23] MEDS: TRANEXAMIC ACID 1,000 MG/10 ML VIAL IV ONE (14:26)
[2024-01-23] MEDS ORDERED: ACETAMINOPHEN 325 MG TABLET PO PRN (15:00)
[2024-01-23] MEDS: 0.45 % SODIUM CHLORIDE 1,000 ML IV SCH (16:45)
[2024-01-23] MEDS: OMEPRAZOLE 20 MG CAPSULE PO SCH (17:03)
[2024-01-23] MEDS: HYDROCODONE/APAP 7.5/325MG TABLET PO PRN (17:09)
[2024-01-23] MEDS: LACTATED RINGERS 1,000 ML IV SCH (17:33)
[2024-01-23] MEDS: ceFAZolin 1 GM VIAL IV SCH (19:20)
[2024-01-23] MEDS: HYDROmorphone 1 MG/ML SYRINGE IV PRN (19:53)
[2024-01-23] MEDS: SENNOSIDES 1 TABLET PO SCH (20:15)
[2024-01-23] MEDS: ASPIRIN 81 MG TAB.CHEW CHEWED SCH (20:15)
[2024-01-23] MEDS: 0.9 % SODIUM CHLORIDE 10 ML SYRINGE IV SCH (20:16)
[2024-01-23] MEDS: DOCUSATE SODIUM 100 MG CAPSULE PO SCH (20:16)
[2024-01-23] MEDS: CARBOXYMETHYLCELLULOSE SODIUM 1 EACH DROPER.GEL OP SCH (20:16)
[2024-01-23] MEDS: LOSARTAN 50 MG TABLET PO SCH (20:18)
[2024-01-23] MEDS: KETOROLAC 15 MG/ML VIAL IV PRN (22:57)
[2024-01-24] MEDS ORDERED: VITAMIN K PO SCH (09:00)
[2024-01-24] MEDS: HYDROCHLOROTHIAZIDE 25 MG TABLET PO SCH (09:10)
[2024-01-24] MEDS: METOPROLOL SUCCINATE 25 MG TAB.XL.24H PO SCH (09:10)
== END 2024-01-24 14:45 | disposition home or self-care (01) | DRG 468 ==
LOC: MEDSUR 07:54
PROVIDERS: ADMIT Orthopaedic Surgery; ATTEND Orthopaedic Surgery